=== PATIENT | male | born 1960 | race Caucasian/White ===

== ENCOUNTER 2017-05-24 09:10 | Day surgery (SDC) | payer BC ==
[~2017-05-24 09:10] MED LIST: EPINEPHrine 1 MG/ML SDV ONE; Lactated Ringers 1,000 ML IV SCH; Lidocaine 1%/Sod Bicarbonate in NS 8.4% 1 ML Syringe IDERM PRN; Ropivacaine 0.5% 5 MG/ML 30 ML SDV ONE; Sodium Chloride 0.9% 10 ML Syringe FLUSH PRN
--- NOTE | 2017-05-24 10:14 | PCM.PREANE ---
Preanesthetic Assessment - Procedure Proposed Procedure: Right SVA with RCR and SAD - Anesthesia/Transfusion/Family Hx Anesthesia History: No Prior Anesthesia Family History of Anesthesia Reaction: No Transfusion History: No Prior Transfusion(s) Intubation History: Unknown - Review of Systems General: No Symptoms Pulmonary: No Symptoms Cardiovascular: Other (HTN, HLD ) Gastrointestinal: No Symptoms Neurological: No Symptoms Other: Reports: Easy Bruising, Diabetes (controlled with oral meds, "usually runs in the 140's" ) - Physical Assessment NPO Status Date: 05/23/17 NPO Status Time: 21:00 O2 Sat by Pulse Oximetry: 96 Respiratory Rate: 16 Vital Signs: Last Vital Signs Temp 37.2 C 05/24/17 09:20 Pulse 92 05/24/17 09:20 Resp 16 05/24/17 09:20 BP 151/80 H 05/24/17 09:20 Pulse Ox 96 05/24/17 09:20 Height: 1.75 m Weight: 87.997 kg ASA Class: 2 Mental Status: Alert & Oriented x3 Airway Class: Mallampati = 3 Dentition: Reports: Broken Tooth/Teeth (multiple broken teeth, pt chews so bottom front teeth look to be in poor condition ) Thyro-Mental Finger Breadths: 3 ROM/Head Extension: Full Lungs: Clear to Auscultation, Normal Respiratory Effort Cardiovascular: Regular Rate, Regular Rhythm - Lab Values: Laboratory Last Values POC Glucose 188 mg/dL (70-105) H 05/24/17 09:31 MRSA (PCR) Negative 05/19/17 15:30 - Allergies Allergies/Adverse Reactions: Allergies Allergy/AdvReac Type Severity Reaction Status Date / Time No Known Allergies Allergy Verified 05/24/17 10:06 - Blood Blood Available: No Product(s) Available: None - Anesthesia Plan Pre-Op Medication Ordered: None - Acknowledgements Anesthesia Type Planned: General Anesthesia (OETT), Regional Block (Right interscalene nerve block ) Pt an Appropriate Candidate for the Planned Anesthesia: Yes Alternatives and Risks of Anesthesia Discussed w Pt/Guardian: Yes Pt/Guardian Understands and Agrees with Anesthesia Plan: Yes PreAnesthesia Questionnaire HEENT History: Reports: Impaired Vision Cardiovascular History: Reports: High Cholesterol, Hypertension Respiratory History: Reports: None Gastrointestinal History: Reports: None Genitourinary History: Reports: None BILINGUAL LEGAL ASSISTANT History: Reports: None Musculoskeletal History: Reports: Other (See Below) Other Musculoskeletal History: right rotator cuff tear, left broken arm, broken finger Neurological History: Reports: None Psychiatric History: Reports: None Endocrine/Metabolic History: Reports: Diabetes, Type II Hematologic History: Reports: None Immunologic History: Reports: None Oncologic (Cancer) History: Reports: None Dermatologic History: Reports: None - Past Surgical History Head Surgeries/Procedures: Reports: None Respiratory Surgical History: Reports: None GI Surgical History: Reports: None Female Surgical History: Reports: None Male Surgical History: Reports: None Endocrine Surgical History: Reports: None Neurological Surgical History: Reports: None Musculoskeletal Surgical History: Reports: None Oncologic Surgical History: Reports: None Dermatological Surgical History: Reports: None - SUBSTANCE USE Smoking Status *Q: Current Some Day Smoker Tobacco Use Within Last Twelve Months: Snuff/Dip (30+ years) Second Hand Smoke Exposure: No Recreational Drug Use History: No - HOME MEDS Home Medications: Home Meds Simvastatin [Zocor] 20 mg PO DAILY 05/21/17 [History] Valsartan 160 mg PO DAILY 05/21/17 [History] amLODIPine Besylate [Amlodipine Besylate] 10 mg PO DAILY 05/21/17 [History] metFORMIN HCl [Metformin HCl] 1,000 mg PO BID 05/21/17 [History] Acetaminophen [Tylenol] 650 mg PO Q4H PRN #0 05/24/17 [Rx] Acetaminophen/HYDROcodone [[place] 325-5 MG] 1 - 2 tab PO Q6H PRN #40 tablet 05/24 [Rx] Cyclobenzaprine [Flexeril] 10 mg PO Q8H PRN #40 tab 05/24/17 [Rx] - CURRENT (IN HOUSE) MEDS Current Meds: Current Medications Epinephrine HCl (Adrenalin) 3 mg .XX ONETIME ONE Stop: 05/24/17 12:01 Lactated Ringer's (Ringers, Lactated) 1,000 mls @ 125 mls/hr IV ASDIRECTED ALFREDA Stop: 05/24/17 23:00 Last Admin: 05/24/17 09:40 Dose: 125 mls/hr Lidocaine/Sodium Bicarbonate (Buffered Lidocaine 1% In Ns 8.4%) 0.25 ml IDERM ONETIME PRN PRN Reason: Prior to IV Start Stop: 05/24/17 18:00 Last Admin: 05/24/17 09:39 Dose: 0.25 ml Sodium Chloride (Saline Flush) 10 ml FLUSH ASDIRECTED PRN PRN Reason: Keep Vein Open Stop: 05/24/17 18:00 Discontinued Medications Bupivacaine HCl (Marcaine 0.25%) Confirm Administered Dose 30 ml .ROUTE .STK- MED ONE Stop: 05/24/17 09:45 Cefazolin Sodium (Ancef) Confirm Administered Dose 2 gm .ROUTE .STK-MED ONE Stop: 05/24/17 10:18 Epinephrine HCl (Adrenalin) Confirm Administered Dose 1 mg .ROUTE .STK-MED ONE Stop: 05/24/17 07:56 Fentanyl (Sublimaze) Confirm Administered Dose 250 mcg .ROUTE .ST-MED ONE Stop: 05/24/17 10:17 Lidocaine HCl (Xylocaine-Mpf 1%) Confirm Administered Dose 4 mls @ as directed .ROUTE .ST-MED ONE Stop: 05/24/17 10:17 Lidocaine HCl (Xylocaine-Mpf 1%) Confirm Administered Dose 2 mls @ as directed .ROUTE .ST-MED ONE Stop: 05/24/17 10:17 Midazolam HCl (Versed 1 Mg/Ml) Confirm Administered Dose 2 mg .ROUTE .STK-MED ONE Stop: 05/24/17 10:17 Ondansetron HCl (Zofran) Confirm Administered Dose 4 mg .ROUTE .ST-MED ONE Stop: 05/24/17 10:17 Propofol (Diprivan 20 Ml) Confirm Administered Dose 200 mg .ROUTE .STK-MED ONE Stop: 05/24/17 10:17 Rocuronium [place] (Zemuron) Confirm Administered Dose 50 mg .ROUTE .ST-MED ONE Stop: 05/24/17 10:17 Ropivacaine (Naropin 0.5%) Confirm Administered Dose 30 ml .ROUTE .ST-MED ONE Stop: 05/24/17 07:56
[2017-05-24] MEDS ORDERED: Lidocaine 1% 2 ML ONE (10:16)
[2017-05-24] MEDS ORDERED: Rocuronium 50 MG/5 ML Vial ONE (10:16)
[2017-05-24] MEDS ORDERED: Propofol 200 MG/20 ML SDV ONE (10:16)
[2017-05-24] MEDS ORDERED: Midazolam 1 MG/ML 2 ML SDV ONE (10:16)
[2017-05-24] MEDS ORDERED: Lidocaine 1% 4 ML ONE (10:16)
[2017-05-24] MEDS ORDERED: fentaNYL 250 MCG/5 ML SDV ONE (10:16)
[2017-05-24] MEDS ORDERED: Ondansetron 4 MG/2 ML SDV ONE (10:16)
[2017-05-24] MEDS ORDERED: ceFAZolin 1 GM Vial ONE (10:17)
--- NOTE | 2017-05-24 10:58 | PCM.SN ---
- Free Text/Narrative Note: 05/24/17 [id number] Time out performed. Requested to place right interscale block with ultrasound guidance and nerve stimulator for post op pain control per Dr. Vines and patient. Preop diagnosis right shoulder pain. Procedure is right shoulder arthrosocpy with rotator cuff repair, decompression , and any indicated procedures. Block assisted by Claudio Jimenez CRNA Informed consent obtained. Monitors and O2 placed at 2 l per n/c. Versed 2 mg and Fentanyl 50 mcg given IV total. Patient awake and talking during procedure. Right neck and clavicle area prepped with chlorprep. Sterile gloves, hat and mask worn. US probe with sterile sleeve placed midclavicular with ID of brachial plexus and subclavian artery. Brachial plexus followed cephalad to level of cricoid. Lidocaine 1% local anesthetic injected prior to block placement. 22 g 2 inch stimplex needle advanced with US guidance to brachial plexus. Positive forearm response at .3mA with nerve stimulator. Ceased with saline injection.Ropivacaine 0.5% with epi 1:200,000 injected in increments of 5 ml with negative aspiration before each injection to a total of 30 ml. Good spread of local anesthetic seen on US. Patient tolerated procedure well. Vitals stable with no complaints. See procedure nurses notes. Liseth DOW
[2017-05-24] MEDS ORDERED: EPINEPHrine 1 MG/ML 30 ML MDV ONE (12:00)
[2017-05-24] MEDS ORDERED: Lactated Ringers 1,000 ML ONE (12:17)
[2017-05-24] MEDS ORDERED: ePHEDrine 50 MG/ML SDV ONE (12:29)
[2017-05-24] MEDS: Bupivacaine 0.25% 30 ML SDV ONE ×2 (12:42→13:05)
[2017-05-24] MEDS ORDERED: Ketorolac 30 MG/ML SDV ONE (13:08)
[2017-05-24] MEDS ORDERED: Neostigmine Methylsulfate 10 MG/10 ML MDV ONE (13:12)
[2017-05-24] MEDS ORDERED: Glycopyrrolate 0.2 MG/ML SDV ONE (13:12)
--- NOTE | 2017-05-24 13:28 | PCM.POSTAN ---
POST ANESTHESIA ASSESSMENT - MENTAL STATUS Mental Status: Alert, Oriented - VITAL SIGNS Pulse Rate: 95 SaO2: 96 Resp Rate: 10 Blood Pressure: 157/86 Temperature: 98.8 F - RESPIRATORY Respiratory Status: Respiratory Rate WNL, Airway Patent, O2 Saturation Stable, Supplemental Oxygen - CARDIOVASCULAR CV Status: Pulse Rate WNL, Blood Pressure Stable - GASTROINTESTINAL GI Status: No Symptoms - PAIN Pain Score: 0 - POST OP HYDRATION Hydration Status: Adequate & Stable
--- NOTE | 2017-05-24 14:33 | PCM48HPAN ---
Post Anesthesia Note - EVALUATION WITHIN 48HRS OF ANESTHETIC Vital Signs in Normal Range: Yes Patient Participated in Evaluation: Yes Respiratory Function Stable: Yes Airway Patent: Yes Cardiovascular Function Stable: Yes Hydration Status Stable: Yes Pain Control Satisfactory: Yes Nausea and Vomiting Control Satisfactory: Yes Mental Status Recovered: Yes Pulse Rate: 95 Resp Rate: 10 Temperature: 98.8 F Blood Pressure: 157/86
--- NOTE | 2017-05-31 17:16 | PCM.OPNOTE ---
- General Post-Op/Procedure Note Date of Surgery/Procedure: 05/24/17 Operative Procedure(s): right shoulder video arthroscopy with rotator cuff repair, subacromial decompression, limited debridement, and biceps tenodesis Pre Op Diagnosis: right shoulder rotator cuff tear with biceps tendinopathy Post-Op Diagnosis: Same Anesthesia Technique: General ET Tube, Regional Block (interscalene) Primary Surgeon: Kareem Vines Anesthesia Provider: Karine Prasad Technical Operations Manager: Adriana Upton in mLs: 5 Complications: None Condition: Good
--- NOTE | 2017-06-01 07:27 | OR ---
DATE OF OPERATION: 05/24/2017 SURGEON: Kareem Vines MD OPERATION PERFORMED: Right shoulder video-arthroscopy with rotator cuff repair, subacromial decompression, limited debridement, biceps tenodesis. PREOPERATIVE DIAGNOSIS: Right shoulder rotator cuff tear with biceps tendinopathy. POSTOPERATIVE DIAGNOSIS: Right shoulder rotator cuff tear with biceps tendinopathy. ANESTHESIA: Technique, general endotracheal intubation with regional interscalene block. ANESTHESIA PROVIDER: Karine Prasad CRNA. PEDIATRIC CARDIOLOGIST: Adriana Upton PA-C. ESTIMATED BLOOD LOSS: 5 mL. COMPLICATIONS: None. CONDITION: Stable. DESCRIPTION OF PROCEDURE: The patient was identified in the preop holding area. Proper site was marked and identified by the surgeon. The patient was taken back to the operating theater where after adequate anesthesia, the patient was placed in the lazy right lateral decubitus position. All bony prominences were well padded. The patient was secured to the table. Left upper extremity was then sterilely prepped and draped in the usual sterile fashion. OR time-out was performed. The patient received 2 g IV Ancef. 15 pounds of traction was then applied to the left upper extremity. Posterior incision was made. Scope trocar was introduced at the glenohumeral joint. At this time, cursory examination showed minimal to no chondromalacia changes. Biceps tendon showed significant fraying as well as tendinopathy noted near the insertional region. There was no loose foreign bodies in the axillary gutter and subscapularis tendon was intact. The undersurface of the rotator cuff did show a full-thickness tear noted at the supraspinatus anteriorly. At this time, with the use of a spinal needle, a #2 FiberWire was passed through the biceps tendon through the rotator interval and then biceps tenotomy was performed for later tenodesis in the rotator interval and the subacromial space. Debridement was then done of the footprint of the biceps tendon to make sure there was no loose or frayed pieces. At this time, attention was turned to the subacromial space. The subacromial space was noted to have a significant synovitis as well as bursa. At this time, a limited debridement was done of this making sure to get good visualization of the entire rotator cuff and the subacromial space. After this, limited debridement was carried out, the tear was identified. A good bony bleeding bed was made using a 4-0 full-radius resector. Once this was completed, a 4.75 mm Arthrex SwiveLock anchor was placed medially with a punch and then the anchor was placed. Next a 2 limbs of FiberTape and 2 limbs of FiberWire were then passed. The 2 limbs of FiberWire were then tied medially for a medial repair and then all 4 limbs were brought out laterally. A punch was used out laterally for lateral repair of the double row repair. 4.75mm Arthrex SwiveLock anchor was then loaded with the 4 limbs of suture. Tension was applied to all 4 limbs and was noted to have good compression across the repair site and the lateral anchor was then placed. At this time, the patient was noted to have a type 2/3 acromion. An acromioplasty on surface of the anterior portion of the acromion was then undertaken to make it smooth with posterior border and taken down to being a type 1 acromion. At this time, excess saline was drained from the shoulder. 3-0 nylon simple suture was used for closure of the skin. The patient was placed in sterile soft dressing and a pillow sling, was sent to PACU in stable condition. Please note also that the rotator interval sutures for the biceps tenodesis were tied before this as well. COCO /[id number] MAYCOL
== END 2017-05-24 15:40 | disposition home or self-care (01) ==
LOC: JD.SDS 09:10
PROVIDERS: ATTEND Orthopaedic Surgery
DX: M75.101 Unspecified rotator cuff tear or rupture of right shoulder, not specified as traumatic (principal); M75.21 Bicipital tendinitis, right shoulder; I10 Essential (primary) hypertension; E11.9 Type 2 diabetes mellitus without complications; F17.210 Nicotine dependence, cigarettes, uncomplicated; Z79.84 Long term (current) use of oral hypoglycemic drugs; Z79.899 Other long term (current) drug therapy
CPT/HCPCS: 29826; 29827; 29828; 64415; 82962; 87641; J0171; J0690; J1885; J2250; J2405; J2710; J2795; J3010; J3490; J7120; 01630; J2001; J2704